=== PATIENT | female | born 1975 | race Caucasian/White ===

== ENCOUNTER 2017-11-05 22:01 | Emergency (ER) | payer OTHER ==
[2017-11-06] MEDS: morphine 4 MG/ML VIAL IV (03:42)
[2017-11-06] MEDS: ONDANSETRON 4 MG INJ IV (03:42)
[2017-11-06 04:26] LABS: ADD MAN DIFF? NO
[2017-11-06 04:31] LABS: BASOPHIL # 0.1 10^3/ul (0.0-0.1); BASOPHILS % 0.6 % (0.0-2.0); EOSINOPHILS # 0.2 10^3/ul (0.0-0.5); EOSINOPHILS % 2.2 % (0.0-7.0); HEMATOCRIT 40.1 % (37.0-47.0); HEMOGLOBIN 13.6 g/dl (12.0-16.0); LYMPHOCYTES # 3.7 10^3/ul (0.8-2.9); MEAN CORPUSCULAR HEMOGLOBIN 30.4 pg (29.0-33.0); MEAN CORPUSCULAR HGB CONC 33.9 g/dl (32.0-37.0); MEAN CORPUSCULAR VOLUME 89.5 fl (82.0-101.0); MEAN PLATELET VOLUME 10.6 fl (7.4-10.4); MONOCYTE # 0.6 10^3/ul (0.3-0.9); MONOCYTES % 5.4 % (0.0-11.0); NEUTROPHILS % 56.5 % (39.0-77.0); PLATELET COUNT 406 10^3/UL (140-415); RED BLOOD COUNT 4.48 10^6/ul (4.20-5.40); RED CELL DISTRIBUTION WIDTH 13.3 % (11.5-14.5)
[2017-11-06 04:31] LABS: WHITE BLOOD COUNT 10.6 10^3/ul (4.8-10.8)
[2017-11-06] MEDS: ACETAMINOPHEN 325 MG TAB PO (04:45)
[2017-11-06 04:48] LABS: ANION GAP 20 (8-16); BLOOD UREA NITROGEN 12 mg/dl (7-20); CALCIUM 9.8 mg/dl (8.4-10.2); CARBON DIOXIDE 22 mmol/L (21-31); CHLORIDE 106 mmol/L (97-110); CREATININE 0.61 mg/dl (0.44-1.00); GLUCOSE 108 mg/dl (70-220); POTASSIUM 3.8 mmol/L (3.5-5.1); SODIUM 144 mmol/L (135-144)
[2017-11-06 05:03] LABS: TROPONIN-I < 0.012 ng/ml (0.00-0.12)
[2017-11-06 05:05] LABS: FREE THYROXINE INDEX (Calc) 0.89 ug/ml (0.65-3.89); T3 UPTAKE 23.4 % (23.5-40.5); T4 (THYROXINE) 3.8 ug/dl (5.5-11.0)
== END 2017-11-06 06:30 | disposition home or self-care (01) ==
LOC: E/R 22:01
DX: R07.89 Other chest pain (principal); I10 Essential (primary) hypertension
CPT/HCPCS: 36415; 71045; 80048; 84436; 84443; 84479; 84484; 85025; 93005; 99285-25